=== PATIENT | male | born 1940 | race African-American/Black ===

== ENCOUNTER 2018-11-03 09:21 | Outpatient (RCR) | payer MEDICARE, BC ==
--- NOTE | 2018-10-11 09:14 | NUR ---
10/10/18 1422 Call to pt and left voice message inquiring on how he is feeling.
--- NOTE | 2018-10-11 10:08 | NUR ---
1002 Call to pt to inquire on how he is feeling since medical leave. Pt states he will be back to IOP on 10/19/18.
--- NOTE | 2018-10-19 08:20 | NUR ---
MUTUEL CLERK STATED THAT HE IS UNABLE TO REACH CLIENT VIA PHONE, NO OPTION TO LVM. ATTEMPTED CALLING 'S PHONE AND SAME RESULT. THERAPIST AWARE.
[2018-10-20 14:47] VITALS: BP 137/87
--- NOTE | 2018-10-25 07:22 | NUR ---
10/20/18 1250 Patient in office for annual nursing assessment. Pt is in a bright mood. Pt is alert and oriented x 4. Pt's vital signs stable. Pt and RN went over patients medications. Pt states no new med changes. Pt states he is taking all medications on time and as prescribed. Although, pt has been on effexor for a while, he had questions regarding side effects. Pt given print out on side effects and information on Effexor. All questions answered with patient. A copy of education material in chart.
--- NOTE | 2018-10-25 11:45 | NUR ---
10/21/18 Patient in today for Treatment team. Pt presents clean and neat, alert and oriented x 4. Pt is in a bright mood. Pt asked doctor questions in regards to his effexor. Pt discussed with doctor the side effects and his concern that he has been on the medication for a while. RN gave pt information on the medication, copies in chart. Pt states IOP has helped him alot. Pt will continue with IOP 2x/week. Pt will follow up in one month. Treatment team concluded.
[~2018-11-03] VITALS: Ht 180.3 cm; Wt 88.9 kg
[~2018-11-03 09:21] MED LIST: CENTRUM ADULTS1 TAB PO; EFFEXOR XR75 MG PO; GLUCOSAMINE CHO1 CA3; LIPITOR10 M1 PO; XALATAN 0.005%2.5 ML OU; [UNRECOGNIZED DRUG - OTHER] PO
[2018-11-03 09:31] VITALS: BP 145/87
== END 2018-11-03 23:59 | disposition still patient (30) ==
LOC: PATHWAYS 09:21
PROVIDERS: ATTEND Specialist
DX: F33.8 Other recurrent depressive disorders (principal); F41.1 Generalized anxiety disorder